=== PATIENT | male | born 1960 | race African-American/Black ===

== ENCOUNTER 2018-01-30 06:10 | Day surgery (SDC) | payer OTHER ==
[2018-01-29 12:13] VITALS: BMI 35.1
[2018-01-30] MEDS ORDERED: DEXAMETHASONE SOD PHOSPHATE/PF 10 MG/ML SDV ONE (07:08)
[2018-01-30] MEDS ORDERED: ROPIVACAINE HCL 0.5% 30ML VIAL ONE (07:08)
[2018-01-30] MEDS ORDERED: MIDAZOLAM HCL 2 MG/2 ML SINGLE DOSE VIAL ONE ×2 (07:10)
[2018-01-30] MEDS ORDERED: SUCCINYLCHOLINE CHLORIDE 200 MG/10 ML VIAL ONE (07:13)
[2018-01-30] MEDS ORDERED: LIDOCAINE HCL/PF 2% SDV 5ML VIAL ONE (07:13)
[2018-01-30] MEDS ORDERED: DEXAMETHASONE SOD PHOSPHATE 4 MG/1 ML VIAL ONE (07:13)
[2018-01-30] MEDS ORDERED: PROPOFOL 20 ML ONE ×2 (07:13→09:23)
[2018-01-30] MEDS ORDERED: ROCURONIUM BROMIDE 50 MG/5 ML VIAL ONE (07:40)
[2018-01-30] MEDS ORDERED: ceFAZolin SODIUM 1 GM VIAL ONE (08:36)
[2018-01-30] MEDS ORDERED: ceFAZolin SODIUM 1 GM VIAL IVPB ONE (08:40)
[2018-01-30] MEDS ORDERED: ePHEDrine SULFATE 50 MG/1 ML AMPULE ONE (08:55)
[2018-01-30] MEDS ORDERED: ONDANSETRON 4 MG/2 ML VIAL IVPUSH PRN (09:04)
[2018-01-30] MEDS ORDERED: oxyCODONE HCL 5 MG TABLET PO PRN (09:04)
[2018-01-30] MEDS ORDERED: ACETAMINOPHEN 500 MG TABLET (FP) PO PRN (09:05)
[2018-01-30] MEDS ORDERED: LACTATED RINGERS SOLUTION 1,000 ML IV SCH (09:15)
[2018-01-30] MEDS ORDERED: DESFLURANE GAS 240 ML BOTTLE IH ONE (09:33)
[2018-01-30] MEDS ORDERED: NEOSTIGMINE METHYLSULFATE 0.5 MG/ML - 10 ML MDV ONE (09:49)
[2018-01-30] MEDS ORDERED: GLYCOPYRROLATE 0.2 MG/1 ML VIAL ONE (09:49)
--- NOTE | 2018-01-30 09:59 | HP ---
Satellite H - Chief Complaint Chief Complaint: left shoulder pain - Past Medical History Allergies/Adverse Reactions: Allergies Allergy/AdvReac Type Severity Reaction Status Date / Time celery Allergy Severe "i use an Verified 01/30/18 07:10 epipen" No Known Drug Allergies Allergy Verified 01/30/18 07:10 - Current Medications Current Medications: Home Medications Medication Instructions Recorded Ibuprofen 800 mg PO PRN PRN 01/29/18 Losartan/Hydrochlorothiazide 1 each PO BID 01/29/18 [Losartan-Hctz 100-25 mg Tab] Hydrocodone/Acetaminophen [[place] 1 each PO Q6H PRN #40 tablet MDD 4 01/30/18 5-325 Tablet] Satellite Physical Exam - Physical Examination Vital Signs: Vital Signs Period Temp Pulse Resp BP Sys/Davis Pulse Ox Last 24 Hr 98.2 F-98.2 F 69-69 20-20 167-167/105-105 99 General Appearance: Well Nourished, Well Developed, Alert & Oriented x3 ENT: Clear Lung: Normal air movement Heart: Regular rate & rhythm Extremities: Other (left shoulder -+ ttp, decr rom, nvi MRI + impingement, SLAP) Neurological: Intact, Alert, Oriented Satellite Impression/Plan - Impression/Plan Impression: left shoulder impingement, SLAP tear Operative Procedure: left shoulder arthroscopy with SAD and possible POWER SYSTEM ELECTRICAL ENGINEER repair Date to be Performed: 01/30/18
--- NOTE | 2018-01-30 10:00 | OP ---
Operative Note - Note: Operative Date: 01/30/18 ([facility]) Pre-Operative Diagnosis: left shoulder impingement, SLAP tear Operation: left shoulder arthroscopy with SAD, DCE Post-Operative Diagnosis: Same as Pre-op Surgeon: Edgar Umana Wooden Frame Builder: Josh Sims) Anesthesiologist/GAMING CASHIER: Lucia Vega Anesthesia: General, Local Specimens Removed: shavings Estimated Blood Loss (mls): 10 Operative Report Dictated: Yes
--- NOTE | 2018-01-30 10:51 | OP ---
DATE OF OPERATION: 01/30/2018 PREOPERATIVE DIAGNOSIS: Left shoulder impingement syndrome, acromioclavicular joint arthritis, and possible labral tear. POSTOPERATIVE DIAGNOSIS: Left shoulder impingement syndrome and acromioclavicular joint arthritis. SURGEON: Josh Gomez MD HAND TOUCH UP PAINTER: JOHNNIE Pinto PROCEDURE: Left shoulder arthroscopy, subacromial decompression, and distal clavicle excision. DRAINS: None. COMPLICATIONS: None. BLOOD LOSS: Minimal. BLOOD GIVEN: None. FLUID REPLACEMENT: 700 mL. INDICATION: This patient is a 57-year-old male with a preoperative diagnosis of left shoulder impingement syndrome, AC joint arthritis, possible labral tear. After understanding the potential risks, complications, alternatives, and benefits of surgery versus nonsurgical treatment, the patient elected to proceed with this procedure. DESCRIPTION OF PROCEDURE: Patient was brought to the operating room, peripheral IV placed, IV sedation given, 2 g IV Ancef was given. LMA anesthesia was induced after left interscalene block was performed. He was placed in the beach chair position with ample padding throughout. The left upper extremity was prepped and draped in sterile fashion, the bony landmarks marked out with a marking pen, a posterior portal established. Diagnostic glenohumeral arthroscopy was performed. Patient had a very small undersurface rotator cuff tear, therefore an anterior portal was established. It was probed and then shaved/debrided. It comprised perhaps 2% to 3% of the thickness of the rotator cuff. The rest was visualized and seen to be intact. There was no glenohumeral arthritis. The biceps tendon was intact. There was some fraying of the labrum. This was debrided as well and then extensively probed. There was no tear. The area was copiously irrigated and washed out, all debris and excess saline removed. Next, our attention turned to the subacromial space. Lateral portal was established under direct visualization using a spinal needle. The patient had a tremendous amount of inflammatory bursitis. This was debrided with the ArthroCare wand and the shaver. After this extensive debridement and bursectomy, I was able to directly visualize the top surface of the rotator cuff. It was seen to be intact with no tear. The patient had a very large subacromial and supraclavicular spur. All soft tissue was removed and both were taken down with a 5.5-mm oval bur, then was fine tuned in reverse and with the shaver. The area was extensively explored. There were no other spurs. It looked much improved. All excess saline and debris were removed. Closure was done with 3-0 nylon. The area was then washed and dried, covered with Aquacel dressing, put into a sling. He was extubated, taken down out of the beach chair position, brought to the ambulatory recovery room in stable condition. There were no complications during the case. He was quite stable. Total operative time was about 45 minutes. JOSH GOMEZ M.D. [id number]
--- NOTE | 2018-01-30 12:55 | OP ---
ADDENDUM DATE OF OPERATION: DATE OF DICTATION: 01/30/2018 PRIMARY SURGEON: Edgar Umana MD CLINICAL NURSING MANAGER: Josh Sims MD SECOND CLINICAL NURSING MANAGER: JOHNNIE Pinto M.D. [id number]
[2018-01-30 13:05] VITALS: TEMP 97.8
[2018-01-30] MEDS ORDERED: ACETAMINOPHEN 500 MG TABLET (FP) ONE (13:28)
[2018-01-30] MEDS ORDERED: ONDANSETRON 4 MG/2 ML VIAL ONE (14:59)
[2018-01-30 16:12] VITALS: BP 116/64; PULSE 91
--- NOTE | 2018-01-31 12:17 | PATH ---
Surgical Pathology Report Patient Name: JAYLENE CONNORS Med. Rec. #: [id number] /Age/Gender: 1960 (Age: 57) / M Account: [id number] Location: [facility] Taken: 01/30/2018 Received: 01/30/2018 Reported: 01/31/2018 Physicians: Diana Kinney M.D. Specimen(s) Received LEFT SHOULDER SHAVINGS Clinical History Tear left shoulder Final Diagnosis LEFT SHOULDER SHAVINGS: FRAGMENTS OF BONE, SKELETAL MUSCLE, SYNOVIAL TISSUE, AND FIBROCARTILAGINOUS TISSUE WITH DEGENERATIVE CHANGE. Electronically Signed Tiff Berrios M.D. Gross Description Received in formalin, labeled "left shoulder shavings," is a 6.5 x 4.0 x 0.6 cm. aggregate of mary-yellow soft tissue fragments. A canvas products sales representative portion is submitted in one cassette. /01/30/2018 saudi01/30/2018
== END 2018-01-30 16:15 | disposition home or self-care (01) ==
LOC: JASU-SURG 06:10
PROVIDERS: ATTEND Orthopaedic Surgery
PROC: 0PBB4ZZ Excision of Left Clavicle, Percutaneous Endoscopic Approach (ICD-10-PCS; 2018-01-30)
PROC: 0RBK4ZZ Excision of Left Shoulder Joint, Percutaneous Endoscopic Approach (ICD-10-PCS; principal; 2018-01-30 08:00)
DX: M75.42 Impingement syndrome of left shoulder (principal); M19.012 Primary osteoarthritis, left shoulder; J45.909 Unspecified asthma, uncomplicated; I10 Essential (primary) hypertension
CPT/HCPCS: 88304-TC; 94760